=== PATIENT | female | born 1985 | race Caucasian/White ===

== ENCOUNTER → 2016-04-17 | Outpatient (CLI) | payer MEDICAID ==
[~2016-04-17] MED LIST: AMOXICILLIN 50500 MG PO; AMOXIL500 MG PO; AURALGAN OT10 ML/BOT OT; BUPROPION HCL75 M1 PO; CELEXA10 MG PO; CIPRO 500MG TA500 MG PO; CIPRO HC 0.2%-110 ML OT; CITALOPRAM HYDR20 MG PO; CYCLOBENZAPRINE10 M1 OR; IBUPROFEN200 MG PO; KEFLEX 500MG.500 MG PO; LORTAB 5/500 501 TAB PO; Mobic7.5 MG PO; NAPROXEN SODIU500 MG PO; NOMEDS *; NYSTATIN O15 GM/TUBE TP; PHENERGAN 25MG.25 M1 PO; PHENTERMINE H37.5 M1 PO; PREDNISONE 20MG20 MG PO; SUBOXONE 8 MG-21 FIL SL; TESSALON PERLE100 M1 PO; TESSALON PERLE100 MG PO; ZITHROMAX Z PA250 MG PO; ZOFRAN ODT4 MG PO
--- NOTE | 2016-04-22 08:59 | RADIOLOGY REPORT PS360 ---
CT CHEST W/O CONTRAST ORDERING PHYSICIAN : Cameron rGant MD PATIENT AGE: 30 years GENDER: Female INDICATION: LUNG NODULE SEEN ON IMAGING STUDY TECHNIQUE: Helical CT scanning performed the chest with sagittal and coronal reconstruction CT workstation. No contrast COMPARISON: Chest film to [id number] as well as 2006 Also chest [id number] as well as 2006 FINDINGS There is a mass lesion seen at the medial aspect of left chest, best seen coronal slice 40, sagittal image 54.. This mass measuring up to nearly 3.8 cm cm maximum length x 2.5 cm AP ... It resides along the left lower lobe bronchus I believe leading to the medial basilar segment LLL. Bronchoscopy would be the most optimal route for further evaluation. This patient is 30 years old and this would be unusually early for lung carcinoma. But this density irregular lesion clearly warrants further evaluation. There are other benign processes such as hamartomas they can occur and younger patients. Pulmonary sequestration might be included in differential but it does not not have typical appearance for such. Unlikely Vascular lesion needs to be excluded with postcontrast CT. Again recommend pulmonary consult for potential bronchoscopy. Recommend postcontrast CT prior to bronchoscopy/and intervention This mass extends towards the left infrahilar region. The medial left base. However there is no hilar nor mediastinal adenopathy associated. At the mediastinum minimal density at the anterior mediastinum noted reflecting residual thymus. This likely. There is a tiny 3.5 mm nodule posteriorly at LLL axial image 52 sagittal slice 59. Unimpressive slightly linear in character and may reflect an area of scarring. There is a tiny 3.5 mm nodule seen at the posterior aspect of the RLL lobe sagittal image 33 axial slice 44. No pleural lesions. No focal pneumonia otherwise seen. Osseous structures appear intact. Upper abdomen unremarkable. Adrenals unremarkable. Additional note this density is been noted on prior CXR studies dating back to October 2012 as well as 2006. This Long-standing character with support benign benign entity is some form including those mentioned above IMPRESSION: --------- 1.. Pulmonary mass at medial most aspect LLL. It measures up to 3.8 cm length maximally. & resides just along the lower lobe bronchus. Tend to favor benign entity due to the patient's younger age & features discussed above Recommended pulmonary consult Bronchoscopy would be the most optimal route for further evaluation here.... 2. Tiny 3.5 mm subpleural nodule posterior right lower lobe and posterior left lower lobe otherwise noted. 3. No mediastinal nor hilar adenopathy associated 4. Adrenals unremarkable.
== END ==
LOC: RAD 07:44
DX: R91.1 Solitary pulmonary nodule (principal)